=== PATIENT | female | born 1965 ===

== ENCOUNTER 2020-12-18 10:23 | Emergency (ER) | payer BC ==
--- NOTE | 2020-12-18 11:26 | EDM.PDOC ---
ED HPI GENERAL MEDICAL PROBLEM - General Chief Complaint: Lower Extremity Injury/Pain Stated Complaint: L TOE POSS FX Time Seen by Provider: 12/18/20 10:24 Source of Information: Reports: Patient History Limitations: Reports: No Limitations - History of Present Illness INITIAL COMMENTS - FREE TEXT/NARRATIVE: HISTORY AND PHYSICAL: History of present illness: Patient is a 55-year-old female who presents to the emergency room with complaints of left fourth toe deformity. She states she was walking without any shoes or slippers on and had accidentally stubbed her toe on a piece of furniture. Immediately after she noted that the fourth toe was deformed and wanting to overlap the fifth digit. She denies any other extremity involvement. She offers no systemic complaints. Patient is diabetic although states she has good CMS and denies any history of neuropathy. Review of systems: As per history of present illness and below otherwise all systems reviewed and negative. Past medical history: As per history of present illness and as reviewed below otherwise noncontributory. Surgical history: As per history of present illness and as reviewed below otherwise noncon tributory. Social history: See social history for further information Family history: As per history of present illness and as reviewed below otherwise noncontributory. Physical exam: General: Well developed and well nourished. Alert and orientated x 3. Nontoxic in appearance and in no acute distress. Vital signs are stable and have been reviewed by me. Nursing notes were reviewed. HEENT: Atraumatic, normocephalic, pupils equal and reactive bilaterally, negative for conjunctival pallor or scleral icterus, mucous membranes moist, TMs normal bilaterally, throat clear, neck supple, nontender, trachea midline. No drooling or trismus noted. No meningeal signs. No hot potato voice noted. Lungs: Clear to auscultation bilaterally. No wheezes, rales, or rhonchi. Chest nontender. Normal work of breathing, no accessory muscles used. Heart: S1S2, regular rate and rhythm without overt murmur, gallops, or rubs. No JVD. No peripheral edema Abdomen: Soft, nondistended, nontender. Normoactive bowel sounds. Negative for masses or costovertebral tenderness. Skin: Intact, warm, dry. No lesions or rashes noted. Hematologic: No petechiae or purpra. Mucosa appropriate color and normal nail bed color and refill. Extremities: She moves all extremities per self without difficulty or deficits, deformity of the left fourth digit on foot. Cap refill less than 3 seconds. Strong pedal and pretibial pulses. Negative for cords or calf pain. Neurovascular unremarkable. Neuro: Awake, alert, oriented. Cranial nerves II through XII unremarkable. Cerebellum unremarkable. Motor and sensory unremarkable throughout. Exam nonfocal. Psychiatric: Mood and affect are appropriate. Normal thought process. Answering questions appropriately. Notes: *This patient was seen and evaluated during the 2019 SARS-CoV-2 novel coronavirus pandemic period. Community viral transmission is ongoing at time of this encounter and the emergency department is operating under pandemic response procedures. X-ray shows acute complete displaced fracture of the distal aspect proximal phalanx left 4th toe with lateral deviation of the remainder of the toe itself. Soft tissue swelling. Orthopedic consultation is suggested. Toe reduction was thoroughly explained to patient. I did offer to do a digital block which she declines. I was able to gently pull on the toe and successfully reduce the dislocated joint, we both felt a "pop" and she had relief of discomfort. Due to patient's diabetes I did thoroughly examine her skin which is intact, no abrasions, soft tissue swelling or redness is noted. We discussed the need to closely observe her skin to make sure she does not have any skin/diabetic complications. The fourth and third toe were taped with paper tape for skin comfort. Postreduction x-ray shows improved angulation across the fracture involving the distal aspect proximal phalanx left 4th toe. Skin and CMS reassessed and within normal limits. I have talked with the patient about today's findings, in addition to providing specific details for plan of care. Reassessment at the time of disposition demonstrates that the patient is in no acute distress. The patient is stable for discharge, counseling was provided and we discussed in great detail signs and symptoms that would prompt them to return to the Emergency Department. Medication, follow up and supportive care measures were reviewed and discussed. Voices understanding and is agreeable to plan of care. Denies any further questions or concerns at this time. Diagnostics: X-ray, postreduction x-ray Therapeutics: Blaze tape, Post Operative shoe, Crutches Prescription: Tylenol with cod elix Impression: Toe dislocation, left Toe fracture, left Plan: 1. You were evaluated today on an emergent basis. Your toe is fractured, rest, ice, elevate the extremity as able. Please use the postop shoe and use the crutches to be nonweightbearing until you follow-up with podiatry. 2. You can alternate Tylenol and ibuprofen as needed for pain and fever management. 3. We encourage you to follow up with Dr Shravan Esparza the [facility] in the next few days for re-evaluation and further care/management. His clinic is located in [facility]. 4. If your symptoms should worsen, new symptoms develop or any of the signs and symptoms we discussed should arise please return to the emergency room or call 911 (if needed). Definitive disposition and diagnosis as appropriate pending reevaluation and review of above. Left Toe-Ring Pain Score (Numeric/FACES): 5 - Related Data Allergies Allergy/AdvReac Type Severity Reaction Status Date / Time latex Allergy Airway Verified 04/12/18 10:16 Tightness nitrofurantoin Allergy Hives Verified 04/12/18 10:12 [From Furadantin] Penicillins Allergy Hives Verified 04/12/18 10:12 tetracycline [Tetracycline] Allergy Hives Verified 04/12/18 10:12 Home Meds: Home Meds Acetaminophen/Codeine [Tylenol/Codeine 120-12 MG/5 ML] 5 ml PO Q4H PRN #118 ml 12/18/20 [Rx] Past Medical History - Past Health History Medical/Surgical History: Denies Medical/Surgical History HEENT History: Reports: None Cardiovascular History: Reports: Hypertension Respiratory History: Reports: None Gastrointestinal History: Reports: Other (See Below) Other Gastrointestinal History: Acid Reflux Genitourinary History: Reports: None [employer] History: Reports: Musculoskeletal History: Reports: Back Pain, Chronic Neurological History: Reports: Headaches, Chronic Psychiatric History: Reports: None Endocrine/Metabolic History: Reports: None Hematologic History: Reports: None Immunologic History: Reports: None Oncologic (Cancer) History: Reports: None Dermatologic History: Reports: None - Infectious Disease History Infectious Disease History: Reports: None - Past Surgical History Head Surgeries/Procedures: Reports: None HEENT Surgical History: Reports: Tonsillectomy GI Surgical History: Reports: None Female Surgical History: Reports: D&C, Endometrial Ablation Musculoskeletal Surgical History: Reports: None Social & Family History - Family History Family Medical History: No Pertinent Family History - Caffeine Use Caffeine Use: Reports: None - Recreational Drug Use Recreational Drug Use: No - Living Situation & Occupation Living situation: Reports: Review of Systems - Review of Systems Review Of Systems: Comprehensive ROS is negative, except as noted in HPI. ED EXAM, GENERAL - Physical Exam Exam: See Below (See dictation) ED TRAUMA EXTREMITY PROCEDURES - Joint Reduction Left 4th toe Sedation: Other (Declined) Pre-Procedure NV Status: Normal Post-Procedure NV Status: Normal Technique: Traction/Counter Traction Number of Attempts: 1 Post-Reduction Imaging: Completely Reduced, Acceptably Reduced, Fracture Seen Joint Reduction Complications: No Course - Vital Signs Last Recorded V/S: Last Vital Signs Temp 97.2 F 12/18/20 10:32 Pulse 89 12/18/20 10:32 Resp 18 12/18/20 10:32 BP 145/79 H 12/18/20 10:32 Pulse Ox 94 L 12/18/20 10:32 - Orders/Labs/Meds Orders: Active Orders 24 hr Category Date Time Status DME for Discharge [COMM] Stat Oth 12/18/20 11:02 Ordered Departure - Departure Time of Disposition: 11:57 Disposition: Home, Self-Care 01 Clinical Impression: Toe fracture, left Qualifiers: Encounter type: initial encounter Toe: lesser toe Fracture type: closed Phalanx: distal Fracture alignment: displaced Qualified Code(s): S92.532A - Displaced fracture of distal phalanx of left lesser toe(s), initial encounter for closed fracture Dislocation of toe of left foot Qualifiers: Encounter type: initial encounter Qualified Code(s): S93.105A - Unspecified dislocation of left toe(s), initial encounter - Discharge Information Prescriptions: Acetaminophen/Codeine [Tylenol/Codeine 120-12 MG/5 ML] 5 ml PO Q4H PRN #118 ml PRN Reason: Pain Instructions: Toe Fracture, [id number] Referrals: PCP,None [Primary Care Provider] - Forms: ED Department Discharge Additional Instructions: The following information is given to patients seen in the emergency department who are being discharged to home. This information is to outline your options for follow-up care. We provide all patients seen in our emergency department with a follow-up referral. The need for follow-up, as well as the timing and circumstances, are variable depending upon the specifics of your emergency department visit. If you don't have a primary care physician on staff, we will provide you with a referral. We always advise you to contact your personal physician following an emergency department visit to inform them of the circumstance of the visit and for follow-up with them and/or the need for any referrals to a consulting specialist. The emergency department will also refer you to a specialist when appropriate. This referral assures that you have the opportunity for follow-up care with a specialist. All of these measure are taken in an effort to provide you with optimal care, which includes your follow-up. Under all circumstances we always encourage you to contact your private physician who remains a resource for coordinating your care. When calling for follow-up care, please make the office aware that this follow-up is from your recent emergency room visit. If for any reason you are refused follow-up, please contact the [facility] Emergency Department at and asked to speak to the emergency department charge nurse. [facility] [address] [place] [id number] Shravan Esparza [address] [place] [id number] Thank you for choosing the [facility] emergency department in [place] for your medical needs today. It was a pleasure caring for you. Today you were seen in the emergency department for toe fracture. 1. You were evaluated today on an emergent basis. Your toe is fractured, rest, ice, elevate the extremity as able. Please use the postop shoe and use the crutches to be nonweightbearing until you follow-up with podiatry. 2. You can alternate Tylenol and ibuprofen as needed for pain and fever management. 3. We encourage you to follow up with Dr Shravan Esparza the [facility] in the next few days for re-evaluation and further care/management. His clinic is located in [facility]. 4. If your symptoms should worsen, new symptoms develop or any of the signs and symptoms we discussed should arise please return to the emergency room or call [phone] (if needed). Sepsis Event Note (ED) - Evaluation Sepsis Screening Result: No Definite Risk - Focused Exam Vital Signs: Vital Signs Temp Pulse Resp BP Pulse Ox 12/18/20 10:32 97.2 F 89 18 145/79 H 94 L - My Orders Last 24 Hours: My Active Orders 12/18/20 11:02 DME for Discharge [COMM] Stat - Assessment/Plan Last 24 Hours: My Active Orders 12/18/20 11:02 DME for Discharge [COMM] Stat
--- NOTE | 2020-12-18 11:28 | CR ---
INDICATION: Injury. Deformity. TECHNIQUE: Three views of the left 4th toe. FINDINGS: There is an acute complete obliquely oriented fracture involving the distal aspect of the proximal phalanx of the left 4th toe with angulation across the fracture site. The mid and distal aspect of the toe is laterally deviated indicating displacement related to the fracture. Soft tissue swelling. IMPRESSION: Acute complete displaced fracture of the distal aspect proximal phalanx left 4th toe with lateral deviation of the remainder of the toe itself. Soft tissue swelling. Orthopedic consultation is suggested. Dictated by Justus Cabrera MD @ 12/18/2020 11:28:[address] Justus Cabrera @ Dec 18 2020 11:28AM
--- NOTE | 2020-12-18 11:54 | CR ---
INDICATION: Fracture dislocation. Reduction. Follow up. TECHNIQUE: Three views of the left 4th toe. COMPARISON: Pre reduction images from December 18, 2020 performed earlier on the same date. FINDINGS: Interval reduction of the previous identified dislocated angulated fracture deformity distal aspect proximal phalanx left 4th toe. More normal but not perfect alignment is achieved. There is still some mild angulation across the fracture site and soft tissue swelling. IMPRESSION: Improved angulation across the fracture involving the distal aspect proximal phalanx left 4th toe. Dictated by Justus Cabrera MD @ 12/18/2020 11:51:[address] Justus Cabrera @ Dec 18 2020 11:51AM
[2020-12-18 12:52] VITALS: BP 156/84; PULSE 82
== END 2020-12-18 11:51 | disposition home or self-care (01) ==
LOC: MW.ED 10:23
DX: S92.532A Displaced fracture of distal phalanx of left lesser toe(s), initial encounter for closed fracture (principal); S92.512A Displaced fracture of proximal phalanx of left lesser toe(s), initial encounter for closed fracture; I10 Essential (primary) hypertension; Z91.040 Latex allergy status; Z88.1 Allergy status to other antibiotic agents; Z88.0 Allergy status to penicillin
CPT/HCPCS: 28630; 73660-26-T3; 73660-T3; 99283; 99283-25